=== PATIENT | male | born 1995 | race Caucasian/White ===

== ENCOUNTER 2018-01-10 18:42 | Emergency (ER) | payer OTHER ==
[2018-01-10 19:16] VITALS: BP 147/77; PULSE 97; TEMP 97.7; BMI 38.0
--- NOTE | 2018-01-10 20:10 | PDOC ---
History of Present Illness - General Chief Complaint: Pain Stated Complaint: EAR PAIN Time Seen by Provider: 01/10/18 19:11 History Source: Patient Exam Limitations: Clinical Condition - History of Present Illness Initial Comments: 01/10/18 20:11 Patient with no significant past medical history present with complain of right ear pain since this morning when he pulled water in his right ear thinking to relieve his symptoms. Patient reported feeling of swelling in the right ear and painful to touch from the right ear since this morning. Denies fever, chills, headache. Patient denies any other symptoms Timing/Duration: 24 hours Past History - Past Medical History Allergies/Adverse Reactions: Allergies Allergy/AdvReac Type Severity Reaction Status Date / Time No Known Allergies Allergy Verified 05/17/14 23:49 Home Medications: Ambulatory Orders Neomycin/Polymyxin B/Hydrocort [Lrmyxmof-Khmnwzfjq-Uk Ear Susp] 2 drop OT TID 5 Days #1 bottle 01/10/18 Cardiac Disorders: No CVA: No COPD: No DVT: No Dementia: No Diabetes: No Dialysis: No - Immunization History Immunization Up to Date: Yes - Suicide/Smoking/Psychosocial Hx Smoking Status: No Smoking History: Never smoked Number of Cigarettes Smoked Daily: 0 Information on smoking cessation initiated: No Hx Alcohol Use: No Drug/Substance Use Hx: No Substance Use Type: None Review of Systems - Review of Systems Able to Perform ROS?: Yes Is the patient limited [place] proficient: No Constitutional: No: Chills, Diaphoresis, Fever, Loss of Appetite, Malaise, Night Sweats, Weakness, Weight Stable, Unintentional Wgt. Loss, Unexplained wgt Loss, Other HEENTM: Yes: Ear Pain (right ear). No: Eye Pain, Blurred Vision, Tearing, Recent change in vision, Double Vision, Cataracts, Ocular Prothesis, Ear Discharge, Nose Pain, Nose Congestion, Tinnitus, Nose Bleeding, Hearing Loss, Throat Pain, Throat Swelling, Mouth Pain, Dental Problems, Difficulty Swallowing , Mouth Swelling, Other Respiratory: No: Cough, Orthopnea, Shortness of Breath, SOB with Exertion, SOB at Rest, Stridor, Wheezing, Productive cough, Hemoptysis, Other Cardiac (ROS): No: Chest Pain, Edema, Irregular Heart Rate, Lightheadedness, Palpitations, Syncope, Chest Tightness, Other ABD/GI: No: Abdominal Distended, Abd. Pain w/ defecation, Blood Streaked Bowels , Constipated, Diarrhea, Difficulty Swallowing, Nausea, Poor Appetite, Poor Fluid Intake, Rectal Bleeding, Vomiting, Indigestion, Abdominal cramping, Tarry Stools, Other All Other Systems: Reviewed and Negative *Physical Exam - Vital Signs Last Vital Signs Temp Pulse Resp BP Pulse Ox 97.7 F 97 H 20 147/77 95 01/10/18 19:13 01/10/18 19:13 01/10/18 19:13 01/10/18 19:13 01/10/18 19:13 - Physical Exam Comments: 01/10/18 20:13 GENERAL: Well developed, well nourished. Awake and alert. No acute distress. HEENT: Moderate swelling with mild erythema in the right ear canal. Tympanic membrane normal. Left ear normal Normocephalic, atraumatic. PERRLA, EOMI. No conjunctival pallor. Sclera are non- icteric. Moist mucous membranes. Oropharynx is clear. NECK: Supple. Full ROM. No JVD. Carotid pulses 2+ and symmetric, without bruits. No thyromegaly. No lymphadenopathy. CARDIOVASCULAR: Regular rate and rhythm. No murmurs, rubs, or gallops. Distal pulses are 2+ and symmetric. PULMONARY: No evidence of respiratory distress. Lungs clear to auscultation bilaterally. No wheezing, rales or rhonchi. ABDOMINAL: Soft. Non-tender. Non-distended. No rebound or guarding. No organomegaly. Normoactive bowel sounds. MUSCULOSKELETAL Normal range of motion at all joints. No bony deformities or tenderness. No CVA tenderness. EXTREMITIES: No cyanosis. No clubbing. No edema. No calf tenderness. SKIN: Warm and dry. Normal capillary refill. No rashes. No jaundice. NEUROLOGICAL: Alert, awake, appropriate. Cranial nerves 2-12 intact. No deficits to light touch and temperature in face, upper extremities and lower extremities. No motor deficits in the in face, upper extremities and lower extremities. Normoreflexic in the upper and lower extremities. Normal speech. Toes are down- going bilaterally. Gait is normal without ataxia. PSYCHIATRIC: Cooperative. Good eye contact. Appropriate mood and affect. General Appearance: Yes: Nourished, Appropriately Dressed Medical Decision Making - Medical Decision Making 08/10/18 20:09 Patient with no significant past medical history presenting with complain of right ear pain and swelling which is worsen when he tried putting water in his right ear this morning. Symptoms likely otitis externa. Patient stable for home discharge on ear drops with ENT follow-up *DC/Admit/Observation/Transfer Diagnosis at time of Disposition: Otitis externa Qualifiers: Otitis externa type: swimmer's ear Chronicity: acute Laterality: right Qualified Code(s): H60.331 - Swimmer's ear, right ear - Discharge Dispostion Disposition: HOME Condition at time of disposition: Stable - Prescriptions Prescriptions: Neomycin/Polymyxin B/Hydrocort [Zmablogp-Jxworibvv-Yt Ear Susp] 2 drop OT TID 5 Days #1 bottle - Referrals Referrals: Clement Mojica MD [Staff Physician] - - Patient Instructions Printed Discharge Instructions: Otitis Externa Additional Instructions: use ear drops as directed. follow-up with referred ENT if no improvement in 3 days - Post Discharge Activity
== END 2018-01-10 20:12 | disposition home or self-care (01) ==
LOC: JER 18:42 → JERFT 18:42
DX: H60.331 Swimmer's ear, right ear (principal)
CPT/HCPCS: 99281-25

== ENCOUNTER 2018-01-12 16:29 | Emergency (ER) | payer OTHER ==
[2018-01-12 16:35] VITALS: BP 121/91; PULSE 18; TEMP 100.3; BMI 39.1
[2018-01-12] MEDS ORDERED: IBUPROFEN 400 MG TABLET (FP) PO ONE ×2 (16:56→16:58)
--- NOTE | 2018-01-12 17:00 | PDOC ---
History of Present Illness - General Chief Complaint: Ear Problem Stated Complaint: EAR PROBLEM Time Seen by Provider: 01/12/18 16:48 History Source: Patient Exam Limitations: No Limitations - History of Present Illness Initial Comments: 01/12/18 16:54 22 yr male obese with left ear pain for 4 days seen in ER 2 days ago treated for externa with polymyxin b ear drops. Pt states no improvement and pain is worse. fever today 100.1 no sore throat Severity: moderate Past History - Past Medical History Allergies/Adverse Reactions: Allergies Allergy/AdvReac Type Severity Reaction Status Date / Time No Known Allergies Allergy Verified 01/12/18 16:32 Home Medications: Ambulatory Orders Amoxicillin - [Amoxicillin 875mg Tablet -] 875 mg PO BID #20 tablet 01/12/18 Cardiac Disorders: No CVA: No COPD: No DVT: No Dementia: No Diabetes: No Dialysis: No - Immunization History Immunization Up to Date: Yes - Suicide/Smoking/Psychosocial Hx Smoking Status: No Smoking History: Never smoked Number of Cigarettes Smoked Daily: 0 Information on smoking cessation initiated: Yes Hx Alcohol Use: No Drug/Substance Use Hx: No Substance Use Type: None *Physical Exam - Vital Signs Last Vital Signs Temp Pulse Resp BP Pulse Ox 100.3 F H 18 L 115 H 121/91 100 01/12/18 16:33 01/12/18 16:33 01/12/18 16:33 01/12/18 16:33 01/12/18 16:33 - Physical Exam General Appearance: Yes: Nourished, Appropriately Dressed, Obese HEENT: positive: EOMI, MALIK, Pharynx Normal, TM Erythema, Other (left external ear canal red, swollen TM bulging and dull, yellow pus in canal no mastoid tenderness) Neck: negative: Tender Respiratory/Chest: positive: Lungs Clear, Normal Breath Sounds. negative: Chest Tender Cardiovascular: positive: Regular Rhythm, Regular Rate Musculoskeletal: positive: Normal Inspection Extremity: positive: Normal Capillary Refill, Normal Inspection, Normal Range of Motion Integumentary: positive: Normal Color, Dry, Warm Neurologic: positive: Fully Oriented, Alert, Normal Mood/Affect, Normal Response , Motor Strength 5/5 Medical Decision Making - Medical Decision Making 01/12/18 16:58 cc: left ear pain with fever started drops 2 days ago will start on amox 875mg twice daily for 10 days motrin for pain strict follow up jose[facility] ENT tomorrow or Saturday *DC/Admit/Observation/Transfer Diagnosis at time of Disposition: Otitis media Qualifiers: Otitis media type: suppurative Chronicity: acute Laterality: left Recurrence: not specified as recurrent Spontaneous tympanic membrane rupture: without spontaneous rupture Qualified Code(s): H66.002 - Acute suppurative otitis media without spontaneous rupture of ear drum, left ear - Discharge Dispostion Disposition: HOME Condition at time of disposition: Good - Prescriptions Prescriptions: Amoxicillin - [Amoxicillin 875mg Tablet -] 875 mg PO BID #20 tablet - Referrals Referrals: Jenny Paris [Primary Care Provider] - Clement Mojica MD [Staff Physician] - - Patient Instructions Additional Instructions: please follow with the ENT doctor tomorrow or saturday for follow up no water in the ear no qtip take motrin (over the counter) 800mg every 8hrs for pain and fever use the drops 4 drops 4 times a day for one week - Post Discharge Activity
== END 2018-01-12 17:14 | disposition home or self-care (01) ==
LOC: JERFT 16:29
DX: H66.002 Acute suppurative otitis media without spontaneous rupture of ear drum, left ear (principal)
CPT/HCPCS: 99281-25

== ENCOUNTER 2022-11-11 07:40 | Emergency (ER) | payer OTHER ==
[2022-11-11 07:50] VITALS: RESP 18; BMI 54.8
[2022-11-11] MEDS ORDERED: SODIUM CHLORIDE 0.9% 500 ML INFUS.BAG IV ONE (08:15)
[2022-11-11] MEDS ORDERED: ACETAMINOPHEN 1000 MG/100 ML BAG IVPB ONE (08:15)
[2022-11-11] MEDS ORDERED: FAMOTIDINE 20 MG/50 ML IVPB 20 MG/50 ML MG IVPB ONE (08:15)
[2022-11-11] MEDS ORDERED: MAG HYDROX/AL HYDROX/SIMETH 30 ML UNIT-DOSE CUP PO ONE (08:16)
[2022-11-11] MEDS ORDERED: ACETAMINOPHEN INJECTION 100 ML IVPB ONE (08:50)
[2022-11-11] MEDS ORDERED: FAMOTIDINE 10 MG/ML VIAL IVPB ONE (08:50)
[2022-11-11] MEDS ORDERED: MAG HYDROX/AL HYDROX/SIMETH 30 ML UNIT-DOSE CUP ONE (08:50)
[2022-11-11 09:55] LABS: BASO % 0.8 % (0-2.0); EOS % 0.7 % (0-4.5); HEMATOCRIT 46.3 % (35.4-49); HEMOGLOBIN 15.8 GM/dL (11.7-16.9); LYMPH % 18.1 % (8-40); MCH 29.6 pg (25.7-33.7); MCHC 34.1 g/dl (32.0-35.9); MEAN CELL VOLUME 86.8 fl (80-96); MEAN PLT VOLUME 9.4 fl (7.5-11.1); MONO % 3.8 % (3.8-10.2); NEUT % 76.6 % (42.8-82.8); PLATELET COUNT 315 10^3/uL (134-434); RBC 5.34 M/mm3 (4.00-5.60); WHITE BLOOD COUNT 13.4 K/mm3 (4.0-10.0)
[2022-11-11 10:15] LABS: POTASSIUM 4.8 mmol/L (3.5-5.1)
[2022-11-11 10:17] LABS: CALCIUM 9.2 mg/dL (8.5-10.1)
[2022-11-11 10:18] LABS: ALBUMIN 3.7 g/dl (3.4-5.0); BLOOD UREA NITROGEN 12.5 mg/dL (7-18); MAGNESIUM 2.2 mg/dL (1.8-2.4)
[2022-11-11 10:21] LABS: CREATININE 0.9 mg/dL (0.55-1.3)
[2022-11-11 10:23] LABS: TOT PROT 8.2 g/dl (6.4-8.2)
[2022-11-11 10:28] LABS: BILIRUBIN,TOTAL 0.9 mg/dL (0.2-1)
[2022-11-11 11:07] VITALS: BP 128/74; PULSE 77; TEMP 98
== END 2022-11-11 11:04 | disposition home or self-care (01) ==
LOC: JER 07:40
PROC: 3E033GC Introduction of Other Therapeutic Substance into Peripheral Vein, Percutaneous Approach (ICD-10-PCS; principal; 2022-11-11)
PROC: 3E033NZ Introduction of Analgesics, Hypnotics, Sedatives into Peripheral Vein, Percutaneous Approach (ICD-10-PCS; 2022-11-11)
DX: R07.9 Chest pain, unspecified (principal); R11.2 Nausea with vomiting, unspecified
CPT/HCPCS: 36415; 71046-TC-FY; 80053; 83690; 83735; 84484; 85025; 93005; 93010; 99285-25

== ENCOUNTER 2023-09-24 12:33 | Emergency (ER) | payer OTHER ==
[2023-09-24 12:38] VITALS: BP 138/66; PULSE 84; RESP 20; TEMP 97.6
[2023-09-24 12:46] VITALS: BMI 41.5
[2023-09-24] MEDS: ACETAMINOPHEN 500 MG TABLET (FP) PO ONE (13:39)
[2023-09-24] MEDS ORDERED: ACETAMINOPHEN 325 MG TABLET (FP) ONE (13:40)
[2023-09-24] MEDS ORDERED: ACETAMINOPHEN 500 MG TABLET (FP) ONE (14:10)
[2023-09-24] MEDS: KETOROLAC TROMETHAMINE 30 MG/1 ML VIAL IM ONE (15:15)
[2023-09-24] MEDS ORDERED: KETOROLAC TROMETHAMINE 30 MG/1 ML VIAL ONE (15:16)
== END 2023-09-24 15:47 | disposition home or self-care (01) ==
LOC: JERFT 12:33
PROC: 3E023GC Introduction of Other Therapeutic Substance into Muscle, Percutaneous Approach (ICD-10-PCS; principal; 2023-09-24)
DX: S89.92XA Unspecified injury of left lower leg, initial encounter (principal); M25.562 Pain in left knee; M25.462 Effusion, left knee; W19.XXXA Unspecified fall, initial encounter; Y93.66 Activity, soccer
CPT/HCPCS: 73562-TC-LT-FY; 73700-TC-RT; 96372; 99284-25